=== PATIENT | male | born 1970 | race Caucasian/White ===

== ENCOUNTER 2021-11-24 14:27 | Outpatient (CLI) | payer MEDICARE, MEDICAID, SELFPAY ==
--- NOTE | ~2021-11-24 | US_ITS ---
EXAMINATION: US art doppler w press LE DATE: 11/24/2021 15:35 INDICATION: Peripheral arterial disease. TECHNIQUE: Segmental pressures and plethysmographic and Doppler waveforms of the brachial and lower e xtremity arteries were obtained. COMPARISON: None. FINDINGS: Right and left brachial artery pressures of 123 mm Hg and 144 mm Hg, respectively, are concordant (no rmal difference <= 30 mmHg). The right high-thigh pressure index is 1.08 (normal > 1.2). The right ankle-brachial index (DAKSHA) is 0 .96 (normal >= 0.9-1.0). The right great toe-brachial index (TBI) is 0.59 (normal >= 0.65). Arterial Doppler waveforms are triphasic in common femoral artery and biphasic from superficial femoral artery to posterior tibial artery and at least biphasic in dorsalis pedis. The left high-thigh pressure index is 0.99. The left DAKSHA is 0.97. The left TBI is 0.75. Arterial Dopp ler waveforms are triphasic in common femoral artery and biphasic from superficial femoral artery to the ankle. IMPRESSION: 1. Mildly decreased ABIs, consistent with arterial occlusive disease. Reviewed, dictated and finalized at location B.
== END 2021-11-24 14:28 | disposition home or self-care (01) ==
PROVIDERS: PCP Family Medicine; Visit Provider Podiatrist Foot & Ankle Surgery
DX: I73.9 Peripheral vascular disease, unspecified (principal)
CPT/HCPCS: 93923

== ENCOUNTER → 2022-08-04 14:12 | Outpatient (CLI) | payer MEDICARE, MEDICAID, SELFPAY ==
--- NOTE | ~2022-08-04 | US_ITS ---
EXAMINATION: US abdomen complete DATE: 08/04/2022 14:50 INDICATION: Other specified abnormal findings of blood chemistry TECHNIQUE: Multiple grayscale and Doppler ultrasound images of the abdomen were obtained. COMPARISON: None available FINDINGS: The head and body of the pancreas are normal. The pancreatic tail is obscured by bowel gas. The liver is normal with normal echogenicity and echotexture. No surface nodularity. Normal hepatope monique flow in the main portal vein. There is a 3 mm polyp of the gallbladder. No stones or pericholecys tic fluid are identified. The normal common bile duct measures 5 mm. There was no sonographic Negrete sign. The visualized portions of the aorta and inferior vena cava are normal. The spleen is normal in appearance and measures 11.2 cm. The right kidney measures 9.4 x 4.7 x 5.4 cm . The left kidney measures 11.5 x 5.5 x 5.6 cm. The kidneys demonstrate normal parenchymal echogenici ty. There is no hydronephrosis. IMPRESSION: 1. No sonographic correlate for the patient's symptoms. Reviewed, dictated and finalized at location L.
== END ==
PROVIDERS: PCP Family Medicine; Visit Provider Physician Assistant Medical
DX: R79.89 Other specified abnormal findings of blood chemistry (principal)
CPT/HCPCS: 76700

== ENCOUNTER 2023-06-29 10:58 | Outpatient (CLI) | payer MEDICARE, MEDICAID, SELFPAY ==
--- NOTE | ~2023-06-29 | US_ITS ---
EXAMINATION: US abdomen complete DATE: 06/29/2023 12:41 INDICATION: Other specified abnormal findings of blood chemistry. TECHNIQUE: Multiple grayscale and Doppler ultrasound images of the abdomen were obtained. COMPARISON: Abdomen ultrasound 08/04/2022 FINDINGS: The visualized portions of the head and body of the pancreas are normal. The liver is vishal l without focal lesion. There is normal flow in main portal vein. The gallbladder is normal in size a nd contains a 5 mm polyp, likely a benign cholesterol polyp that does not need follow-up. The visible gallstones. No gallbladder wall thickening or sonographic Negrete sign. The common duct is normal and measures 4 mm. Abdominal aorta is normal in caliber. The inferior vena cava is normal. The kidneys a re normal in size. The spleen is normal in size. IMPRESSION: 1. No etiology for abnormal findings of blood chemistry. Reviewed, dictated and finalized at location A.
== END 2023-06-29 10:59 | disposition home or self-care (01) ==
LOC: ANHIMG 11:00
PROVIDERS: PCP Family Medicine; Visit Provider Physician Assistant Medical
DX: R79.89 Other specified abnormal findings of blood chemistry (principal)
CPT/HCPCS: 76700

== ENCOUNTER 2023-10-19 00:18 | Day surgery (SDC) | payer MEDICARE, SELFPAY ==
[2023-10-08 10:19] VITALS: BMI 29.0
--- NOTE | 2023-10-19 08:56 | WPDANESEPPF ---
Anes - Initial Pre Proc Eval Procedure: Operation Date: 10/19/23 14:30 Proposed Procedures p Colonoscopy - Domingo Dela Cruz MD Date/Time: 10/19/23 08:56 Surgeon: Domingo Dela Cruz MD Pre Op Diagnosis: Melena, Positive Cologuard Patient Data Age: 53 Gender: M Height: 1.7 m Weight: 84 kg Allergies Allergy/AdvReac Type Severity Reaction Status Date / Time No Known Allergies Allergy Verified 10/19/23 11:34 Home Medications Medication Instructions Recorded Confirmed Type aspirin 81 mg tablet,delayed 81 mg PO DAILY 03/07/19 10/19/23 History release amlodipine 10 mg tablet See Rx Instructions .Route 03/01/23 10/19/23 Rx .COMPLEX #90 tabs buspirone 10 mg tablet 10 mg PO BID #180 tabs 03/01/23 10/19/23 Rx levothyroxine 75 mcg tablet See Rx Instructions .Route 03/01/23 10/19/23 Rx .COMPLEX #90 tabs nebivolol 10 mg tablet (Bystolic) 10 mg PO DAILY #90 tabs 03/01/23 10/19/23 Rx baclofen 10 mg tablet 10 mg PO TID #90 tabs 04/20/23 10/19/23 Rx pyridoxine (vitamin B6) 100 mg 100 mg PO DAILY 08/03/23 10/19/23 History tablet atorvastatin 40 mg tablet See Rx Instructions .Route 08/30/23 10/19/23 Rx .COMPLEX #90 tabs alprazolam 0.5 mg tablet (Xanax) 0.5 mg PO BID PRN anxiety #180 tabs 09/07/23 10/19/23 Rx Patient hx anesthesia problems: none Family hx anesthesia problems: none Results Review: All pre-operative results and documents have been reviewed as part of the pre-operative evaluation. 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 Anxiety Essential hypertension Foot drop, left foot Hypothyroidism Mixed hyperlipidemia Screening for colon cancer Screening for prostate cancer Tobacco abuse Family History Family History Father Alcoholism Alcoholic cirrhosis of liver Mother , COPD COPD (chronic obstructive pulmonary disease) Emphysema lung Tobacco abuse Sibling COVID-19 Tobacco abuse Social History Social History Smoking packs per day: 1 Smoking cigarettes per day: 20.0 Years smoked: 40 Smoking pack-years: 40.00 Smoking status: Current every day smoker Tobacco type: cigarettes Second hand tobacco smoke exposure: Yes Alcohol intake: former Substance use: current Substance use type: does not use Living arrangements: with family Additional living arrangements comments: brother Occupation/Education: unemployed Additional occupation/education comments: disabled Gender identity (if verbalized by the patient): Male Spiritual care concerns: No Agree to blood products: Yes Anes - Eval Final PreProcedure Day of Procedure 10/19/23 08:56 Patient weight: overweight Heart: regular rate and rhythm Lungs: clear to auscultation Airway: Mallampati scale class III and special considerations poor dentition Neurological: alert and oriented Last oral intake: >/= 8 hours ASA classification: III Emergent: no Anesthetic plan: proceed Anesthesia type and monitoring: general GIVS and standard monitoring Results Review: All pre-operative results and documents have been reviewed as part of the pre-operative evaluation. Informed Consent: The patient's anesthetic plan and its attendant risks and benefits were discussed with the patient/family/POA. Questions were solicited and answers provided to the satisfaction of the patient/family/POA.
[2023-10-19 11:35] VITALS: BP 122/81; PULSE 56; RESP 19; TEMP 36.2; O2SAT 98; BMI 28.0
[2023-10-19] MEDS: LACTATED RINGERS 1,000 ML 150 ML IV CONT (11:58)
--- NOTE | 2023-10-19 12:38 | PM.HPGS ---
History of Present Illness History of Present Illness Consent: Risks, benefits, and alternatives have been discussed and questions answered. Patient agrees to proceed with procedure. 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 Anxiety Essential hypertension Foot drop, left foot Hypothyroidism Mixed hyperlipidemia Positive colorectal cancer screening using Cologuard test Screening for colon cancer Screening for prostate cancer Tobacco abuse Family History Family History Father Alcoholism Alcoholic cirrhosis of liver Mother , COPD COPD (chronic obstructive pulmonary disease) Emphysema lung Tobacco abuse Sibling COVID-19 Tobacco abuse Social History Social History Smoking packs per day: 1 Smoking cigarettes per day: 20.0 Years smoked: 40 Smoking pack-years: 40.00 Smoking status: Current every day smoker Tobacco type: cigarettes Second hand tobacco smoke exposure: Yes Alcohol intake: former Substance use: current Substance use type: does not use Living arrangements: with family Additional living arrangements comments: brother Occupation/Education: unemployed Additional occupation/education comments: disabled Gender identity (if verbalized by the patient): Male Spiritual care concerns: No Agree to blood products: Yes Meds Home Medications and Allergies Home Medications Medication Instructions Recorded Confirmed Type aspirin 81 mg tablet,delayed 81 mg PO DAILY 03/07/19 10/19/23 History release amlodipine 10 mg tablet See Rx Instructions .Route 03/01/23 10/19/23 Rx .COMPLEX #90 tabs buspirone 10 mg tablet 10 mg PO BID #180 tabs 03/01/23 10/19/23 Rx levothyroxine 75 mcg tablet See Rx Instructions .Route 03/01/23 10/19/23 Rx .COMPLEX #90 tabs nebivolol 10 mg tablet (Bystolic) 10 mg PO DAILY #90 tabs 03/01/23 10/19/23 Rx baclofen 10 mg tablet 10 mg PO TID #90 tabs 04/20/23 10/19/23 Rx pyridoxine (vitamin B6) 100 mg 100 mg PO DAILY 08/03/23 10/19/23 History tablet atorvastatin 40 mg tablet See Rx Instructions .Route 08/30/23 10/19/23 Rx .COMPLEX #90 tabs alprazolam 0.5 mg tablet (Xanax) 0.5 mg PO BID PRN anxiety #180 tabs 09/07/23 10/19/23 Rx Allergies Allergy/AdvReac Type Severity Reaction Status Date / Time No Known Allergies Allergy Verified 10/19/23 11:34 Vital Signs Vital Signs - 24 hr 10/19/23 11:35 Temperature 97.2 F L Pulse Rate 56 L Respiratory Rate 19 Blood Pressure 122/81 Pulse Oximetry 98 Oxygen Delivery Room Air Exam Const: General: comfortable and no acute distress HENMT: Face/Nose/Sinus: Normal nares present Eyes: General: appearance normal, both eyes and all related structures Neck: Neck: no JVD Resp: Auscultation: clear to auscultation bilaterally Cardio: Rate: regular rate Rhythm: regular rhythm GI: Inspection: non-distended GI Palp: Yes Soft to palpation Skin: General skin exam: normal color Neuro: General: gait normal Speech: normal speech Extrem: General: normal to inspection Psych: Mental Status: mental status grossly normal Assessment and Plan Assessment and plan (1) Positive colorectal cancer screening using Cologuard test: Code(s): R19.5 - Other fecal abnormalities Status: Acute Assessment and Plan: colonoscopy
[2023-10-19 13:00] VITALS: BP 94/59; PULSE 52; RESP 20; O2SAT 95
[2023-10-19 13:10] VITALS: BP 100/66; PULSE 51; RESP 15; O2SAT 96
[2023-10-19 13:20] VITALS: BP 111/69; PULSE 51; RESP 15; O2SAT 99
--- NOTE | 2023-10-19 13:37 | SUR.PHASEII ---
pt waiting on ride. called. no answer.
== END 2023-10-19 14:00 | disposition home or self-care (01) ==
PROVIDERS: PCP Family Medicine; Referring Provider Nurse Practitioner; Visit Provider Internal Medicine Gastroenterology
PROC: 0DJD8ZZ Inspection of Lower Intestinal Tract, Via Natural or Artificial Opening Endoscopic (ICD-10-PCS; CPT 45378; principal; 2023-10-19 14:30)
DX: D12.0 Benign neoplasm of cecum (principal); D12.4 Benign neoplasm of descending colon; D12.5 Benign neoplasm of sigmoid colon; D12.3 Benign neoplasm of transverse colon; F41.9 Anxiety disorder, unspecified; I10 Essential (primary) hypertension; E78.2 Mixed hyperlipidemia; E03.9 Hypothyroidism, unspecified; M21.372 Foot drop, left foot; F17.210 Nicotine dependence, cigarettes, uncomplicated; Z79.82 Long term (current) use of aspirin; Z86.73 Personal history of transient ischemic attack (TIA), and cerebral infarction without residual deficits
CPT/HCPCS: 45385; 45380; 88305; J2704; J7120